=== PATIENT | female | born 1980 | race Caucasian/White ===

== ENCOUNTER 2019-08-31 00:16 | Emergency (ER) | payer OTHER ==
[2019-08-31] MEDS ORDERED: LORazepam 1 MG Tab PO PRN (00:38)
--- NOTE | 2019-08-31 00:41 | EDM.PDOCBH ---
ED HPI GENERAL MEDICAL PROBLEM - General Chief Complaint: Behavioral/Psych Stated Complaint: SUICIDAL THOUGHTS Time Seen by Provider: 08/31/19 00:28 Source of Information: Reports: Patient History Limitations: Reports: No Limitations - History of Present Illness INITIAL COMMENTS - FREE TEXT/NARRATIVE: 39 y/o F presents with SI. She states she's been feeling depressed and vaguely suicidal for months. No attempt. Is worried tonight about overdosing and thinks if she goes home she will take an overdose. She has not taken any pills this evening. No drug use. She's had about 3 vodka drinks this evening. Lives with boyfriend who doesn't know she's here. She says things are OK with him. She doesn't feel safe at home due to her own worries about taking an overdose. No recent trauma, no recent illness. No hx psychiatric hospitalization. Her PCP prescribes lexapro, she hasn't ever been under the care of a psychiatrist. - Related Data Allergies Allergy/AdvReac Type Severity Reaction Status Date / Time fentanyl Allergy Anaphylactic Verified 08/31/19 00:24 Shock Home Meds: Home Meds Escitalopram [Lexapro] 10 mg PO DAILY 08/31/19 [History] LORazepam [Ativan] 1 mg PO DAILY PRN 08/31/19 [History] Past Medical History - Past Health History Medical/Surgical History: Denies Medical/Surgical History Psychiatric History: Reports: Anxiety, Depression Social & Family History - Family History Family Medical History: Noncontributory - Tobacco Use Smoking Status *Q: Never Smoker - Recreational Drug Use Recreational Drug Use: No ED ROS GENERAL - Review of Systems Review Of Systems: See Below Constitutional: Denies: Fever HEENT: Reports: No Symptoms Respiratory: Denies: Shortness of Breath Cardiovascular: Reports: No Symptoms Endocrine: Reports: No Symptoms GI/Abdominal: Reports: No Symptoms Musculoskeletal: Reports: No Symptoms Skin: Reports: No Symptoms Neurological: Reports: No Symptoms Psychiatric: Reports: Depression, Suicidal Ideation ED EXAM, BEHAVIORAL HEALTH - Physical Exam Exam: See Below Exam Limited By: No Limitations General Appearance: Alert, Moderate Distress, Other (crying, upset) Eye Exam: Bilateral Eye: Normal Inspection Ears: Normal External Exam Nose: Normal Inspection Throat/Mouth: Normal Inspection, Normal Oropharynx, Normal Voice, No Airway Compromise Head: Atraumatic, Normocephalic Neck: Normal Inspection Respiratory/Chest: No Respiratory Distress Neurological: Alert, Normal Cognition, No Motor/Sensory Deficits, Oriented x 3 Psychiatric: Normal Cognition, Oriented, Tearful. No: Agitated COURSE, BEHAVIORAL HEALTH COMP - Course Vital Signs: Last Vital Signs Temp 36.8 C 08/31/19 00:21 Pulse 92 08/31/19 00:21 Resp 18 08/31/19 00:21 BP 180/120 H 08/31/19 00:21 Pulse Ox 94 L 08/31/19 00:21 Orders, Labs, Meds: Active Orders 24 hr Category Date Time Status LORazepam [Ativan] Med 08/31/19 00:38 Active 1 mg PO ONETIME PRN Medication Orders Lorazepam (Ativan) 1 mg PO ONETIME PRN PRN Reason: Anxiety Medications Generic Name Dose Route Start Last Admin Trade Name Freq PRN Reason Stop Dose Admin Lorazepam 1 mg 08/31/19 00:38 Ativan PO ONETIME PRN Anxiety Re-Assessment/Re-Exam: Patient's mother is at the bedside. She is supportive. She would like to take Catherine home and can monitor her there. Catherine is comfortable with that plan. She is feeling better. She is calm and appropriate. Discussed with mother re: need to secure pills and firearms, she said neither are available in her home. They plan to f/u with PCP [facility], ideally Monday, to discuss medications and further options for support and psychiatry referral. Advised Catherine to return at any time this weekend should she feel suicidal again. Also reminded her of suicide hotline. Departure - Departure Time of Disposition: 01:32 Disposition: Home, Self-Care 01 Clinical Impression: Suicidal ideation - Discharge Information Referrals: Dory Dasilva MD [Primary Care Provider] - Forms: ED Department Discharge Additional Instructions: 1. Return to the ED at any time should your suicidal feelings worsen. 2. Follow up with your regular doctor as soon as possible - call on Monday to schedule. 3. National Suicide Prevention Hotline: - My Orders Last 24 Hours: My Active Orders 08/31/19 00:38 LORazepam [Ativan] 1 mg PO ONETIME PRN - Assessment/Plan Last 24 Hours: My Active Orders 08/31/19 00:38 LORazepam [Ativan] 1 mg PO ONETIME PRN
== END 2019-08-31 01:37 | disposition home or self-care (01) ==
LOC: JD.ED 00:16
DX: R45.851 Suicidal ideations (principal); F41.9 Anxiety disorder, unspecified; F32.9 Major depressive disorder, single episode, unspecified; Z88.5 Allergy status to narcotic agent; Z79.899 Other long term (current) drug therapy
CPT/HCPCS: 99284

== ENCOUNTER 2023-08-22 22:59 | Emergency (ER) | payer OTHER ==
[2023-08-22] MEDS ORDERED: Sodium Chloride 0.9% 1,000 ML IV ONE (23:31)
[2023-08-22] MEDS ORDERED: Ondansetron 4 MG/2 ML SDV IVPUSH ONE (23:31)
[2023-08-22] MEDS ORDERED: HYDROmorphone 1 MG/ML Syringe IVPUSH ONE (23:31)
[2023-08-22 23:58] LABS: BASOPHILS ABSOLUTE AUTO 0.1 K/mm3 (0.0-0.2); BASOPHILS PERCENT AUTO 0.6 % (0.0-1.0); EOSINOPHILS ABSOLUTE AUTO 0.2 K/mm3 (0.0-0.4); EOSINOPHILS PERCENT AUTO 1.9 % (0.0-6.0); HEMATOCRIT 42.4 % (37.0-47.0); HEMOGLOBIN 14.2 gm/dl (12.0-16.0); IMMATURE GRAN ABSOLUTE AUTO 0.07 K/mm3 (0.00-0.05); IMMATURE GRAN PERCENT AUTO 0.8 % (0.0-0.4); LYMPHOCYTES ABSOLUTE AUTO 2.8 K/mm3 (1.0-4.8); LYMPHOCYTES PERCENT AUTO 32.2 % (24.0-44.0); MEAN CORPUSCULAR HEMOGLOBIN 30.5 pg (28.0-32.0); MEAN CORPUSCULAR HGB CONC 33.5 g/dl (32.0-36.0); MEAN CORPUSCULAR VOLUME 91.2 fl (83.0-99.0); MEAN PLATELET VOLUME 9.5 fl (9.4-12.3); MONOCYTES ABSOLUTE AUTO 0.6 K/mm3 (0.0-0.8); MONOCYTES PERCENT AUTO 6.7 % (0.0-8.0); NEUTROPHILS ABSOLUTE AUTO 4.9 K/mm3 (1.8-7.7); NEUTROPHILS PERCENT AUTO 57.8 % (41.0-71.0); PLATELET COUNT,PLT 265 K/mm3 (150-400); RED BLOOD CELL COUNT 4.65 M/mm3 (4.10-5.30); WHITE BLOOD CELL COUNT,WBC 8.54 K/mm3 (3.9-11.3)
[2023-08-23 00:19] LABS: A/G RATIO 1.1 (1-2); ANION GAP 11.2 (5-15); BILIRUBIN TOTAL 0.3 mg/dL (0.2-1.0); CALCIUM 9.6 mg/dL (8.5-10.1); POTASSIUM,K 4.2 mEq/L (3.5-5.1); PROTEIN TOTAL,TP 7.5 g/dl (6.4-8.2)
[2023-08-23] MEDS ORDERED: HYDROmorphone 1 MG/ML Syringe IVPUSH ONE (00:26)
[2023-08-23] MEDS ORDERED: HYDROmorphone 0.5 MG/0.5 ML Syringe IVPUSH ONE (01:27)
== END 2023-08-23 02:00 | disposition home or self-care (01) ==
LOC: JD.ED 22:59
DX: K81.9 Cholecystitis, unspecified (principal); Z79.899 Other long term (current) drug therapy; Z88.8 Allergy status to other drugs, medicaments and biological substances
CPT/HCPCS: 36415; 80053; 85025; 96361; 96374; 96375; 96376; 99284; J1170; J2405; J7030

== ENCOUNTER 2023-09-10 23:43 | Emergency (ER) | payer OTHER ==
[2023-09-11] MEDS ORDERED: Ondansetron 4 MG/2 ML SDV IVPUSH ONE (00:07)
[2023-09-11] MEDS ORDERED: HYDROmorphone 0.5 MG/0.5 ML Syringe IVPUSH ONE (00:08)
[2023-09-11] MEDS ORDERED: Naloxone 0.4 MG/ML SDV IVPUSH PRN (00:08)
[2023-09-11] MEDS ORDERED: Sodium Chloride 0.9% 10 ML Syringe FLUSH PRN (00:09)
[2023-09-11] MEDS ORDERED: Sodium Chloride 0.9% 1,000 ML IV ONE (00:10)
[2023-09-11] MEDS ORDERED: Pantoprazole 40 MG Vial IVPUSH ONE (00:11)
[2023-09-11] MEDS ORDERED: Prochlorperazine 10 MG in Sodium Chloride 0.9% 50 ML IV ONE (00:48)
== END 2023-09-11 02:29 | disposition home or self-care (01) ==
LOC: JD.ED 23:43
DX: K81.9 Cholecystitis, unspecified (principal); K29.70 Gastritis, unspecified, without bleeding; R11.2 Nausea with vomiting, unspecified; I10 Essential (primary) hypertension; Z88.5 Allergy status to narcotic agent; Z91.041 Radiographic dye allergy status
CPT/HCPCS: 96374; 96375; 99283; C9113; J0780; J1170; J2405; J3490; J7030